=== PATIENT | male | born 1935 | race Caucasian/White ===

== ENCOUNTER 2021-07-02 07:12 | Emergency (ER) | payer MEDICARE, BC ==
[~2021-07-02] VITALS: Ht 167.6 cm; Wt 100.0 kg
[~2021-07-02 07:12] MED LIST: ATOR20TA PO; BACL10TA PO; CELE-193 PO; DABI150C PO; DIGO-27 PO; DILT30TA5 PO; DOCU-148 PO; DUTA0.5C40 PO; FLO0.4C PO; FURO-150 PO; GABA-532 PO; ICOS1CAP PO; METO-411 PO; MODA200T48 PO; OLOP5DRO26 EACHEYE; TEST5GEL19 TP; TRAM50TA2 PO
[2021-07-02 07:42] LABS: BASOPHILS # (AUTO) 0.1 X10'3 (0-0.2); BASOPHILS % (AUTO) 1.2 % (0-1); EOSINOPHILS # (AUTO) 0.1 X10'3 (0-0.9); EOSINOPHILS % (AUTO) 1.8 % (0-6); HEMATOCRIT 40.6 % (42.0-52.0); HEMOGLOBIN 13.5 g/dl (14.0-17.9); LYMPHOCYTES % (AUTO) 12.5 % (21-51); MEAN CORPUSCULAR HEMOGLOBIN 30.7 PG (27.0-31.0); MEAN CORPUSCULAR HGB CONC 33.2 g/dL (33.0-36.5); MEAN CORPUSCULAR VOLUME 92.7 FL (78-98); MEAN PLATELET VOLUME 8.6 FL (7.4-10.4); MONOCYTES # (AUTO) 0.8 X10'3 (0-0.9); MONOCYTES % (AUTO) 9.4 % (2-12); NEUTROPHILS # (AUTO) 6.2 X10'3 (1.8-7.7); NEUTROPHILS % (AUTO) 75.1 % (42-75); PLATELET COUNT 155 X10'3 (140-440); RED BLOOD COUNT 4.38 X10'6 (4.70-6.10); RED CELL DISTRIBUTION WIDTH 15.9 % (11.5-14.5); WHITE BLOOD COUNT 8.2 X10'3 (4.5-11.0)
[2021-07-02 08:12] LABS: ALANINE AMINOTRANSFERASE 22 U/L (12-78); ALBUMIN 3.5 G/DL (3.4-5.0); ALBUMIN/GLOBULIN RATIO 1.1 (1.1-1.5); ALKALINE PHOSPHATASE 77 IU/L (46-116); ANION GAP 10 (8-16); ASPARTATE AMINO TRANSFERASE 16 U/L (10-37); BILIRUBIN,TOTAL 0.7 MG/DL (0.1-1.0); BLOOD UREA NITROGEN 17 MG/DL (7-18); BUN/CREATININE RATIO 19.3 (5.4-32.0); CALCIUM 8.6 MG/DL (8.5-10.1); CHLORIDE 109 MMOL/L (99-107); CREATININE 0.88 MG/DL (0.60-1.10); GLUCOSE 143 MG/DL (70-104); POTASSIUM 4.1 MMOL/L (3.5-5.1); SODIUM 143 MMOL/L (135-145); TOTAL CARBON DIOXIDE 24.3 MMOL/L (24-32); TOTAL PROTEIN 6.7 G/DL (6.4-8.2); eGFR 83 ML/MIN
[2021-07-02] MEDS: diltiazem 5mg/ml 5ml inj. IV ONE ×3 (08:33→10:59)
[2021-07-02] MEDS: furosemide 10 MG/1 ML 10ml inj IV ONE (09:33)
[2021-07-02] MEDS ORDERED: metoprolol succinate 25mg (24-HOUR) SR. Tablet PO SCH (09:55)
[2021-07-02] MEDS: metoprolol succinate 25mg (24-HOUR) SR. Tablet PO ONE (10:00)
[2021-07-02] MEDS: diltiazem 30mg tablet PO ONE (10:00)
[2021-07-02 11:49] VITALS: BP 134/98
[2021-07-03] MEDS ORDERED: metoprolol succinate 25mg (24-HOUR) SR. Tablet PO SCH (08:00)
== END 2021-07-02 11:54 | disposition home or self-care (01) ==
LOC: ER 07:13
DX: I48.20 Chronic atrial fibrillation, unspecified (principal); E87.70 Fluid overload, unspecified; I11.0 Hypertensive heart disease with heart failure; I50.9 Heart failure, unspecified; E11.9 Type 2 diabetes mellitus without complications; Z98.890 Other specified postprocedural states; Z72.89 Other problems related to lifestyle; Z79.899 Other long term (current) drug therapy
CPT/HCPCS: 36415; 71045; 80053; 83880; 84484; 85025; 93005; 96374; 96375; 96376; 99285; J1940; J3490

== ENCOUNTER 2023-02-25 15:16 | Inpatient (IN) | payer MEDICARE, BC ==
[~2023-02-25] VITALS: Ht 172.7 cm; Wt 95.5 kg
[~2023-02-25 15:16] MED LIST changes: +ALBU18HF2 INH; -BACL10TA PO; +DAPA10TA PO; +DICL100G59 TOP; -DIGO-27 PO; -DILT30TA5 PO; +DULA0.75 SQ; +FLUT1BLS4 INH; -FURO-150 PO; +FURO80TA87 PO; +GABA-530 PO; -GABA-532 PO; +IPRA3AMP9 NEB; +METF-517 PO; +METH4TAB81 PO; +METO-395 PO; -METO-411 PO; -OLOP5DRO26 EACHEYE; +PREG75CA76 PO; +SACU1TAB PO; -TEST5GEL19 TP
[2023-02-25] MEDS ORDERED: aspirin 325mg tablet PO ONE (15:35)
[2023-02-25] MEDS ORDERED: diltiazem 5mg/ml 5ml inj. IV ONE ×2 (15:35→16:10)
[2023-02-25] MEDS ORDERED: normal saline 500ml IV soln 500 ML IV ONE (15:40)
[2023-02-25 16:31] LABS: APTT 33 SECONDS (22-32); INR 1.1 INR; PROTHROMBIN TIME 11.6 SECONDS (9.0-12.0)
[2023-02-25 16:33] LABS: BASOPHILS # (AUTO) 0.1 X10'3 (0-0.2); BASOPHILS % (AUTO) 0.5 % (0-1); EOSINOPHILS % (AUTO) 0.3 % (0-6); HEMATOCRIT 40.2 % (42.0-52.0); HEMOGLOBIN 13.2 g/dl (14.0-17.9); LYMPHOCYTES # (AUTO) 1.1 X10'3 (1.1-4.8); LYMPHOCYTES % (AUTO) 9.9 % (21-51); MEAN CORPUSCULAR HEMOGLOBIN 29.8 PG (27.0-31.0); MEAN CORPUSCULAR HGB CONC 32.9 g/dL (33.0-36.5); MEAN CORPUSCULAR VOLUME 90.5 FL (78-98); MEAN PLATELET VOLUME 9.7 FL (7.4-10.4); MONOCYTES # (AUTO) 1.3 X10'3 (0-0.9); MONOCYTES % (AUTO) 11.8 % (2-12); NEUTROPHILS # (AUTO) 8.8 X10'3 (1.8-7.7); NEUTROPHILS % (AUTO) 77.5 % (42-75); PLATELET COUNT 155 X10'3 (140-440); RED BLOOD COUNT 4.44 X10'6 (4.70-6.10); RED CELL DISTRIBUTION WIDTH 17.1 % (11.5-14.5); WHITE BLOOD COUNT 11.3 X10'3 (4.5-11.0)
[2023-02-25 16:35] LABS: ALANINE AMINOTRANSFERASE 24 U/L (12-78); ALBUMIN 3.4 G/DL (3.4-5.0); ALBUMIN/GLOBULIN RATIO 0.9 (1.1-1.5); ALKALINE PHOSPHATASE 144 IU/L (46-116); ANION GAP 10 (8-16); ASPARTATE AMINO TRANSFERASE 22 U/L (10-37); BILIRUBIN,TOTAL 1.4 MG/DL (0.1-1.0); BLOOD UREA NITROGEN 27 MG/DL (7-18); BUN/CREATININE RATIO 21.1 (10.0-20.0); CHLORIDE 100 MMOL/L (99-107); CREATININE 1.28 MG/DL (0.60-1.10); GLUCOSE 130 MG/DL (70-104); POTASSIUM 4.9 MMOL/L (3.5-5.1); SODIUM 135 MMOL/L (135-145); TOTAL CARBON DIOXIDE 24.9 MMOL/L (24-32); TOTAL PROTEIN 7.1 G/DL (6.4-8.2); eCRCL 41 ML/MIN; eGFR 53 ML/MIN
[2023-02-25 16:44] LABS: PRO BRAIN NATRIURETIC PEPTIDE 22228 PG/ML (0-450)
[2023-02-25 16:51] LABS: MAGNESIUM 1.9 MG/DL (1.5-2.4)
[2023-02-25] MEDS ORDERED: furosemide 10 MG/1 ML 10ml inj IV ONE (17:10)
[2023-02-25] MEDS ORDERED: nitroGLYCERIN 1gm ointment UD TP ONE (17:10)
[2023-02-25 17:13] VITALS: TEMP 98.2
[2023-02-25] MEDS ORDERED: diltiazem-D5W 125mg/125ml 125 ML IV SCH (17:15)
[2023-02-25] MEDS ORDERED: diltiazem-NS 100mg/100ml 100 ML IV SCH (17:21)
[2023-02-25] MEDS ORDERED: potassium Cl 20 mEq SR tablet PO PRN ×2 (17:25)
[2023-02-25] MEDS ORDERED: mag hydrox/Alum hydrox/simeth 30ml oral suspension PO PRN (17:25)
[2023-02-25] MEDS ORDERED: magnesium hydroxide 30ml (MOM) UD suspension PO PRN (17:25)
[2023-02-25] MEDS ORDERED: acetaminophen 325mg tablet PO PRN (17:25)
[2023-02-25] MEDS ORDERED: magnesium Cl slow-release 64mg tablet PO PRN (17:25)
[2023-02-25] MEDS ORDERED: normal saline 1000ml 1,000 ML IV SCH (17:25)
[2023-02-25] MEDS ORDERED: magnesium 4gm in 100ml NS 100 ML IV PRN (17:25)
[2023-02-25] MEDS ORDERED: potassium Cl 40MEQ/1/2NS 520ml 520 ML IV PRN (17:25)
[2023-02-25] MEDS ORDERED: ondansetron/PF 4mg/2ml inj IV PRN (17:25)
[2023-02-25] MEDS ORDERED: glucagon, human recombinant 1mg kit SUBCUT PRN (19:40)
[2023-02-25] MEDS ORDERED: DEXTROSE 15 GM of carb/4 tabs (each vial/BOTTLE has 4 tablets) PO PRN ×2 (19:40)
[2023-02-25] MEDS ORDERED: insulin Lispro (HumaLOG) vial - multi-dose SQ SCH (19:40)
[2023-02-25] MEDS ORDERED: dextrose 50%-water 50ml dispensing syringe IV PRN ×2 (19:40)
[2023-02-25] MEDS ORDERED: MESSAGE TO PHARMACY PO ONE (19:40)
[2023-02-25 19:59] LABS: HEMOGLOBIN A1C 5.9 % (4.5-6.2)
[2023-02-25] MEDS ORDERED: dabigatran 150mg capsule PO SCH (20:00)
[2023-02-25] MEDS ORDERED: sacubitril/valsartan 24mg-26mg tablet PO SCH (20:00)
[2023-02-25] MEDS ORDERED: metoprolol succinate 25mg (24-HOUR) SR. Tablet PO SCH (20:00)
[2023-02-25] MEDS ORDERED: docusate sod 100mg capsule PO SCH (20:00)
[2023-02-25] MEDS ORDERED: magnesium oxide 400mg tablet PO SCH (20:00)
[2023-02-25] MEDS ORDERED: furosemide 40mg/4ml inj IV SCH (20:00)
[2023-02-25] MEDS ORDERED: insulin glargine (Lantus) pen - multi-dose SQ SCH (21:00)
[2023-02-25 21:42] VITALS: BP 124/75; PULSE 126; RESP 16; O2SAT 98
[2023-02-26] MEDS ORDERED: furosemide 40mg/4ml inj IV SCH (08:00)
[2023-02-26] MEDS ORDERED: DAPAGLIFLOZIN 10MG TABLET PO SCH (08:00)
[2023-02-26] MEDS ORDERED: gabapentin 100mg capsule PO SCH (08:00)
[2023-03-05] MEDS ORDERED: AMOX-101 PO (18:00)
[2023-03-05] MEDS ORDERED: LOSA-415 PO (18:00)
[2023-03-05] MEDS ORDERED: VIT1CAPS46 PO (18:00)
[2023-03-05] MEDS ORDERED: DULA0.75 SUBCUT (18:00)
[2023-03-05] MEDS ORDERED: METO-411 PO (18:00)
[2023-03-05] MEDS ORDERED: FURO-149 PO (18:00)
[2023-03-05] MEDS ORDERED: AMI200T (18:08)
[2023-03-05] MEDS ORDERED: DAPA10TA PO (18:08)
[2023-03-05] MEDS ORDERED: CIPR7.5D (18:08)
[2023-03-06] MEDS ORDERED: DULA0.75 SUBCUT (11:13)
[2023-03-06] MEDS ORDERED: AMOX-100 PO (11:16)
== END 2023-02-25 23:00 | disposition left against medical advice (07) | DRG 291 ==
LOC: ER 15:18 → ED HOLD 17:30
PROVIDERS: ADMIT Family Medicine; ATTEND Family Medicine
DX: I13.0 Hypertensive heart and chronic kidney disease with heart failure and stage 1 through stage 4 chronic kidney disease, or unspecified chronic kidney disease (principal); I50.21 Acute systolic (congestive) heart failure; I48.91 Unspecified atrial fibrillation; N18.9 Chronic kidney disease, unspecified; G89.29 Other chronic pain; M54.89 Other dorsalgia; E11.22 Type 2 diabetes mellitus with diabetic chronic kidney disease; E11.51 Type 2 diabetes mellitus with diabetic peripheral angiopathy without gangrene; Z95.0 Presence of cardiac pacemaker; Z95.5 Presence of coronary angioplasty implant and graft; Z79.899 Other long term (current) drug therapy; Z98.1 Arthrodesis status
CPT/HCPCS: 36415; 71045; 80053; 83036; 83735; 83880; 84484; 85025; 85610; 85730; 96374; 96375; 99291; G0378; J1815; J1940; J3490; J7030; J7040

== ENCOUNTER 2023-03-02 13:20 | Day surgery (SDC) | payer MEDICARE, BC ==
[2023-03-02] VITALS (15 sets, daily range): BP systolic 71–124; BP diastolic 44–77; PULSE 79–157; RESP 16–24; TEMP 97.5; O2SAT 89–99
[~2023-03-02] VITALS: Ht 172.7 cm; Wt 93.9 kg
[2023-03-02] MEDS ORDERED: MIDAZolam 1mg/ml 10ml vial IV ONE (13:40)
[2023-03-02] MEDS ORDERED: normal saline 1000ml 1,000 ML IV SCH (13:40)
[2023-03-02] MEDS ORDERED: fentaNYL/PF 50MCG/1 ML 2ML syringe IV ONE (13:40)
[2023-03-02] MEDS ORDERED: OMEG-220 PO (14:03)
[2023-03-02] MEDS ORDERED: CEPH-585 PO (14:03)
[2023-03-02 14:07] LABS: BASOPHILS # (AUTO) 0.2 X10'3 (0-0.2); BASOPHILS % (AUTO) 1.4 % (0-1); EOSINOPHILS # (AUTO) 0.2 X10'3 (0-0.9); EOSINOPHILS % (AUTO) 1.7 % (0-6); HEMATOCRIT 39.2 % (42.0-52.0); LYMPHOCYTES # (AUTO) 2.2 X10'3 (1.1-4.8); LYMPHOCYTES % (AUTO) 19.3 % (21-51); MEAN CORPUSCULAR HEMOGLOBIN 29.6 PG (27.0-31.0); MEAN CORPUSCULAR HGB CONC 33.1 g/dL (33.0-36.5); MEAN CORPUSCULAR VOLUME 89.6 FL (78-98); MONOCYTES # (AUTO) 1.3 X10'3 (0-0.9); NEUTROPHILS # (AUTO) 7.3 X10'3 (1.8-7.7); NEUTROPHILS % (AUTO) 65.6 % (42-75); PLATELET COUNT 244 X10'3 (140-440); RED BLOOD COUNT 4.37 X10'6 (4.70-6.10); RED CELL DISTRIBUTION WIDTH 17.2 % (11.5-14.5); WHITE BLOOD COUNT 11.2 X10'3 (4.5-11.0)
[2023-03-02] MEDS ORDERED: [UNRECOGNIZED DRUG - CODE] PO (14:08)
[2023-03-02 14:18] LABS: INR 1.4 INR; PROTHROMBIN TIME 14.7 SECONDS (9.0-12.0)
[2023-03-02 14:23] LABS: ANION GAP 11 (8-16); BLOOD UREA NITROGEN 40 MG/DL (7-18); BUN/CREATININE RATIO 28.4 (10.0-20.0); CALCIUM 9.1 MG/DL (8.5-10.1); CHLORIDE 97 MMOL/L (99-107); CREATININE 1.41 MG/DL (0.60-1.10); GLUCOSE 120 MG/DL (70-104); POTASSIUM 3.7 MMOL/L (3.5-5.1); SODIUM 134 MMOL/L (135-145); TOTAL CARBON DIOXIDE 26.3 MMOL/L (24-32); eCRCL 37 ML/MIN; eGFR 48 ML/MIN
[2023-03-05] MEDS ORDERED: LOSA-415 PO (18:00)
[2023-03-05] MEDS ORDERED: METO-411 PO (18:00)
[2023-03-05] MEDS ORDERED: AMOX-101 PO (18:00)
[2023-03-05] MEDS ORDERED: DULA0.75 SUBCUT (18:00)
[2023-03-05] MEDS ORDERED: FURO-149 PO (18:00)
[2023-03-05] MEDS ORDERED: VIT1CAPS46 PO (18:00)
[2023-03-05] MEDS ORDERED: DAPA10TA PO (18:08)
[2023-03-05] MEDS ORDERED: AMI200T (18:08)
[2023-03-05] MEDS ORDERED: CIPR7.5D (18:08)
[2023-03-06] MEDS ORDERED: DULA0.75 SUBCUT (11:13)
[2023-03-06] MEDS ORDERED: AMOX-100 PO (11:16)
== END 2023-03-02 16:03 | disposition home or self-care (01) ==
LOC: SSTAY O 13:20
PROVIDERS: ATTEND Student in an Organized Health Care Education/Training Program
DX: I48.91 Unspecified atrial fibrillation (principal); E78.5 Hyperlipidemia, unspecified; E11.9 Type 2 diabetes mellitus without complications; G47.33 Obstructive sleep apnea (adult) (pediatric); N40.0 Benign prostatic hyperplasia without lower urinary tract symptoms; G25.0 Essential tremor; I11.0 Hypertensive heart disease with heart failure; I50.9 Heart failure, unspecified; I35.0 Nonrheumatic aortic (valve) stenosis; I27.20 Pulmonary hypertension, unspecified; I49.5 Sick sinus syndrome; Z79.84 Long term (current) use of oral hypoglycemic drugs; Z79.899 Other long term (current) drug therapy; Z95.0 Presence of cardiac pacemaker
CPT/HCPCS: 36415; 80048; 82948; 85025; 85610; 92960; 93005; A4620; J2250; J3010; J7030

== ENCOUNTER 2023-04-09 12:10 | Day surgery (SDC) | payer MEDICARE, BC ==
[2023-03-26 15:13] LABS: BASOPHILS # (AUTO) 0.1 X10'3 (0-0.2); BASOPHILS % (AUTO) 1.3 % (0-1); EOSINOPHILS # (AUTO) 0.2 X10'3 (0-0.9); EOSINOPHILS % (AUTO) 3.6 % (0-6); HEMATOCRIT 41.3 % (42.0-52.0); HEMOGLOBIN 13.5 g/dl (14.0-17.9); LYMPHOCYTES # (AUTO) 1.5 X10'3 (1.1-4.8); LYMPHOCYTES % (AUTO) 22.2 % (21-51); MEAN CORPUSCULAR HEMOGLOBIN 29.4 PG (27.0-31.0); MEAN CORPUSCULAR HGB CONC 32.7 g/dL (33.0-36.5); MEAN CORPUSCULAR VOLUME 89.9 FL (78-98); MEAN PLATELET VOLUME 8.7 FL (7.4-10.4); MONOCYTES # (AUTO) 0.6 X10'3 (0-0.9); MONOCYTES % (AUTO) 9.6 % (2-12); NEUTROPHILS # (AUTO) 4.3 X10'3 (1.8-7.7); NEUTROPHILS % (AUTO) 63.3 % (42-75); PLATELET COUNT 164 X10'3 (140-440); RED BLOOD COUNT 4.59 X10'6 (4.70-6.10); RED CELL DISTRIBUTION WIDTH 19.4 % (11.5-14.5); WHITE BLOOD COUNT 6.8 X10'3 (4.5-11.0)
[2023-03-26 15:19] LABS: APTT 53 SECONDS (22-32); INR 1.5 INR; PROTHROMBIN TIME 15.4 SECONDS (9.0-12.0)
[2023-03-26 15:23] LABS: ALBUMIN 3.6 G/DL (3.4-5.0); ANION GAP 9 (8-16); BLOOD UREA NITROGEN 31 MG/DL (7-18); BUN/CREATININE RATIO 18.7 (10.0-20.0); CALCIUM 9.1 MG/DL (8.5-10.1); CHLORIDE 97 MMOL/L (99-107); CREATININE 1.66 MG/DL (0.60-1.10); GLUCOSE 106 MG/DL (70-104); POTASSIUM 4.3 MMOL/L (3.5-5.1); SODIUM 135 MMOL/L (135-145); TOTAL CARBON DIOXIDE 29.1 MMOL/L (24-32); eGFR 40 ML/MIN
[2023-03-26 15:48] LABS: ANISOCYTOSIS 2+; BURR CELLS 1+; ELLIPTOCYTES FEW; PLATELET ESTIMATE NORMAL; POLYCHROMASIA FEW
[~2023-04-09] VITALS: Ht 172.7 cm; Wt 94.2 kg
[2023-04-09] VITALS (11 sets, daily range): BP systolic 100–111; BP diastolic 61–82; PULSE 75–103; RESP 10–23; TEMP 98.7; O2SAT 93–98
[~2023-04-09 12:10] MED LIST changes: -ALBU18HF2 INH; +AMI200T; +CIPR7.5D; -DICL100G59 TOP; -DOCU-148 PO; -DULA0.75 SQ; +DULA0.75 SUBCUT; -FLUT1BLS4 INH; +FURO-149 PO; -FURO80TA87 PO; -GABA-530 PO; -ICOS1CAP PO; +LAN0.125T PO; -METF-517 PO; -METH4TAB81 PO; -METO-395 PO; +METO50TA16 PO; +OMEG-220 PO; -PREG75CA76 PO; -SACU1TAB PO; +VIT1CAPS46 PO
[2023-04-09] MEDS ORDERED: METO-411 (12:56)
[2023-04-09] MEDS ORDERED: METF-517 (12:56)
[2023-04-09 13:08] LABS: BASOPHILS # (AUTO) 0.1 X10'3 (0-0.2); BASOPHILS % (AUTO) 1.6 % (0-1); EOSINOPHILS # (AUTO) 0.1 X10'3 (0-0.9); HEMATOCRIT 37.7 % (42.0-52.0); HEMOGLOBIN 12.3 g/dl (14.0-17.9); LYMPHOCYTES # (AUTO) 1.3 X10'3 (1.1-4.8); LYMPHOCYTES % (AUTO) 18.4 % (21-51); MEAN CORPUSCULAR HEMOGLOBIN 29.5 PG (27.0-31.0); MEAN CORPUSCULAR HGB CONC 32.5 g/dL (33.0-36.5); MEAN CORPUSCULAR VOLUME 90.9 FL (78-98); MEAN PLATELET VOLUME 8.7 FL (7.4-10.4); MONOCYTES # (AUTO) 0.8 X10'3 (0-0.9); MONOCYTES % (AUTO) 11.1 % (2-12); NEUTROPHILS # (AUTO) 4.6 X10'3 (1.8-7.7); NEUTROPHILS % (AUTO) 66.9 % (42-75); PLATELET COUNT 139 X10'3 (140-440); RED BLOOD COUNT 4.15 X10'6 (4.70-6.10); WHITE BLOOD COUNT 6.8 X10'3 (4.5-11.0)
[2023-04-09] MEDS ORDERED: normal saline 1000ml 1,000 ML IV SCH (13:10)
[2023-04-09] MEDS ORDERED: fentaNYL/PF 50MCG/1 ML 2ML syringe IV ONE (13:10)
[2023-04-09] MEDS ORDERED: MIDAZolam 1mg/ml 10ml vial IV ONE (13:10)
[2023-04-09 13:21] LABS: INR 1.2 INR
[2023-04-09 13:22] LABS: ANION GAP 9 (8-16); BLOOD UREA NITROGEN 31 MG/DL (7-18); BUN/CREATININE RATIO 21.7 (10.0-20.0); CALCIUM 8.5 MG/DL (8.5-10.1); CHLORIDE 103 MMOL/L (99-107); CREATININE 1.43 MG/DL (0.60-1.10); GLUCOSE 103 MG/DL (70-104); POTASSIUM 4.5 MMOL/L (3.5-5.1); SODIUM 138 MMOL/L (135-145); TOTAL CARBON DIOXIDE 25.9 MMOL/L (24-32); eCRCL 37 ML/MIN; eGFR 47 ML/MIN
[2023-04-09 16:34] LABS: ANISOCYTOSIS 2+; PLATELET ESTIMATE DECREASED; POIKILOCYTOSIS FEW
== END 2023-04-09 14:55 | disposition home or self-care (01) ==
LOC: SSTAY O 12:10
PROVIDERS: ATTEND Student in an Organized Health Care Education/Training Program
DX: I48.91 Unspecified atrial fibrillation (principal); I11.0 Hypertensive heart disease with heart failure; I50.9 Heart failure, unspecified; E11.9 Type 2 diabetes mellitus without complications; E78.00 Pure hypercholesterolemia, unspecified; N40.0 Benign prostatic hyperplasia without lower urinary tract symptoms; I27.20 Pulmonary hypertension, unspecified; I73.9 Peripheral vascular disease, unspecified; G47.33 Obstructive sleep apnea (adult) (pediatric); Z79.2 Long term (current) use of antibiotics; Z79.84 Long term (current) use of oral hypoglycemic drugs; Z79.899 Other long term (current) drug therapy
CPT/HCPCS: 36415; 80048; 82948; 85025; 85610; 85730; 92960; J2250; J3010; J7030; 85008; A4620

== ENCOUNTER 2023-06-18 05:31 | Emergency (ER) | payer MEDICARE, BC ==
[~2023-06-18] VITALS: Ht 172.7 cm; Wt 96.0 kg
[~2023-06-18 05:31] MED LIST changes: -AMI200T; -CELE-193 PO; -CIPR7.5D; -DULA0.75 SUBCUT; -IPRA3AMP9 NEB; -LAN0.125T PO; +METO200T49 PO; -METO50TA16 PO; +SACU1TAB PO; +SERT-432 PO
[2023-06-18 06:48] VITALS: TEMP 98
[2023-06-18 08:15] VITALS: BP 80/54; PULSE 54; O2SAT 94
[2023-06-18 08:57] VITALS: RESP 16
[2023-06-18 08:57] LABS: BASOPHILS # (AUTO) 0.1 X10'3 (0-0.2); BASOPHILS % (AUTO) 1.1 % (0-1); EOSINOPHILS # (AUTO) 0.1 X10'3 (0-0.9); EOSINOPHILS % (AUTO) 1.6 % (0-6); HEMATOCRIT 40.9 % (42.0-52.0); HEMOGLOBIN 13.5 g/dl (14.0-17.9); LYMPHOCYTES # (AUTO) 1.1 X10'3 (1.1-4.8); LYMPHOCYTES % (AUTO) 16.6 % (21-51); MEAN CORPUSCULAR HEMOGLOBIN 31.1 PG (27.0-31.0); MEAN CORPUSCULAR HGB CONC 33.1 g/dL (33.0-36.5); MEAN CORPUSCULAR VOLUME 93.8 FL (78-98); MEAN PLATELET VOLUME 8.7 FL (7.4-10.4); MONOCYTES # (AUTO) 0.6 X10'3 (0-0.9); MONOCYTES % (AUTO) 8.7 % (2-12); NEUTROPHILS # (AUTO) 4.9 X10'3 (1.8-7.7); PLATELET COUNT 130 X10'3 (140-440); RED BLOOD COUNT 4.36 X10'6 (4.70-6.10); RED CELL DISTRIBUTION WIDTH 18.6 % (11.5-14.5); WHITE BLOOD COUNT 6.9 X10'3 (4.5-11.0)
[2023-06-18 09:25] LABS: ALBUMIN 3.2 G/DL (3.4-5.0); ANION GAP 7 (8-16); BLOOD UREA NITROGEN 40 MG/DL (7-18); BUN/CREATININE RATIO 30.5 (10.0-20.0); CALCIUM 8.5 MG/DL (8.5-10.1); CHLORIDE 103 MMOL/L (99-107); CREATININE 1.31 MG/DL (0.60-1.10); GLUCOSE 102 MG/DL (70-104); POTASSIUM 4.4 MMOL/L (3.5-5.1); PRO BRAIN NATRIURETIC PEPTIDE 4317 PG/ML (0-450); SODIUM 140 MMOL/L (135-145); TOTAL CARBON DIOXIDE 30.2 MMOL/L (24-32); eCRCL 39 ML/MIN; eGFR 52 ML/MIN
[2023-06-18 09:28] LABS: INR 1.2 INR
[2023-06-18 09:46] LABS: ANISOCYTOSIS 2+; PLATELET ESTIMATE DECREASED
[2023-06-18 09:47] LABS: POIKILOCYTOSIS FEW
[2023-06-18] MEDS ORDERED: AMOX875T2 PO (09:51)
[2023-06-18] MEDS ORDERED: AMOX-101 PO (11:41)
== END 2023-06-18 11:41 | disposition home or self-care (01) ==
LOC: ER 05:31
DX: R04.0 Epistaxis (principal); I11.0 Hypertensive heart disease with heart failure; E11.9 Type 2 diabetes mellitus without complications; Z79.899 Other long term (current) drug therapy; Z79.1 Long term (current) use of non-steroidal anti-inflammatories (NSAID); Z79.2 Long term (current) use of antibiotics
CPT/HCPCS: 30901; 36415; 80048; 83880; 84484; 85008; 85025; 85610; 93005; 99284

== ENCOUNTER 2024-04-04 07:57 | Day surgery (SDC) | payer MEDICARE, BC ==
[2024-03-31 12:44] LABS: BASOPHILS # (AUTO) 0.1 X10'3 (0-0.2); EOSINOPHILS # (AUTO) 0.2 X10'3 (0-0.9); LYMPHOCYTES # (AUTO) 1.5 X10'3 (1.1-4.8); LYMPHOCYTES % (AUTO) 18.5 % (21-51); MEAN CORPUSCULAR HEMOGLOBIN 33.4 PG (27.0-31.0); MEAN CORPUSCULAR HGB CONC 34.1 g/dL (33.0-36.5); MEAN CORPUSCULAR VOLUME 97.8 FL (78-98); MEAN PLATELET VOLUME 8.5 FL (7.4-10.4); MONOCYTES # (AUTO) 0.7 X10'3 (0-0.9); MONOCYTES % (AUTO) 9.1 % (2-12); NEUTROPHILS # (AUTO) 5.7 X10'3 (1.8-7.7); NEUTROPHILS % (AUTO) 69.4 % (42-75); PLATELET COUNT 161 X10'3 (140-440); RED CELL DISTRIBUTION WIDTH 15.9 % (11.5-14.5); WHITE BLOOD COUNT 8.2 X10'3 (4.5-11.0)
[2024-03-31 13:02] LABS: APTT 28 SECONDS (22-32); PROTHROMBIN TIME 10.9 SECONDS (9.0-12.0)
[2024-03-31 13:15] LABS: ANION GAP 6 (8-16); BLOOD UREA NITROGEN 32 MG/DL (7-18); CHLORIDE 105 MMOL/L (99-107); GLUCOSE 86 MG/DL (70-104); POTASSIUM 4.8 MMOL/L (3.5-5.1); SODIUM 142 MMOL/L (135-145); TOTAL CARBON DIOXIDE 30.6 MMOL/L (24-32)
[2024-03-31 13:16] LABS: ALBUMIN 3.5 G/DL (3.4-5.0); CALCIUM 9.2 MG/DL (8.5-10.1); CHOL/HDL RATIO 2.3 (0.00-4.99); CHOLESTEROL 142 MG/DL (0-200); HDL CHOLESTEROL 63 MG/DL (35-60); LDL CHOLESTEROL 67 MG/DL (50-100); TRIGLYCERIDES 71 MG/DL (20-135); eGFR 71 ML/MIN
[~2024-04-04] VITALS: Ht 172.7 cm; Wt 99.7 kg
[2024-04-04] VITALS (8 sets, daily range): BP systolic 121–161; BP diastolic 52–73; PULSE 60–65; RESP 14–17; O2SAT 93–97
[~2024-04-04 07:57] MED LIST changes: +METO200T37 PO; -METO200T49 PO; -OMEG-220 PO; +OMEG-270 PO
[2024-04-04] MEDS ORDERED: FURO20TA4 PO (08:31)
[2024-04-04] MEDS ORDERED: SACU1TAB PO (08:31)
[2024-04-04] MEDS ORDERED: DULA0.75 SQ (08:31)
[2024-04-04] MEDS ORDERED: GABA-530 PO (08:36)
[2024-04-04] MEDS ORDERED: CELE-127 PO (08:37)
[2024-04-04] MEDS ORDERED: CARV6.253 PO (08:37)
[2024-04-04] MEDS ORDERED: APIX2.5T PO (08:41)
[2024-04-04] MEDS: LORazepam 0.5 MG tablet PO PRN (09:49)
[2024-04-04] MEDS: diphenhydrAMINE 25mg capsule PO PRN (09:49)
[2024-04-04] MEDS: normal saline 1,000 ML IV SCH (09:49)
[2024-04-04] MEDS ORDERED: verapamil 2.5 mg/ml inj IV ONE (10:06)
[2024-04-04] MEDS ORDERED: LIDOcaine 1% (10mg/ml) 2ml vial ONE (10:06)
[2024-04-04] MEDS ORDERED: fentaNYL/PF 50MCG/1 ML 2ML syringe ONE (10:06)
[2024-04-04] MEDS ORDERED: heparin 1,000unit/ml 10ml vial 10 ML ONE (10:06)
[2024-04-04] MEDS ORDERED: iohexol 350MG/ML 100ml bottle IV ONE (10:06)
[2024-04-04] MEDS ORDERED: midazolam 1 mg/ML 2ml injection ONE (10:06)
[2024-04-04] MEDS ORDERED: nitroGLYCERIN 500mcg/5mL D5W 5 ML IV ONE (10:06)
[2024-04-04] MEDS ORDERED: LIDOcaine 1% 30ml preserv. free vial ONE (12:20)
[2024-04-04] MEDS ORDERED: iohexol 350 MG/ML 50ML vial IV ONE ×2 (12:31→12:38)
[2024-04-04 13:17] LABS: ISTAT HGB ART 12.6 g/dl (14.0-17.9); ISTAT Hct ART 37 %PCV (42-52); ISTAT O2 SATURATION ARTERIAL 98 % (95-98); ISTAT SOURCE ART
[2024-04-04] MEDS ORDERED: HYDROcodone/acetaminophen 5mg/325mg tablet PO PRN (13:50)
[2024-04-04] MEDS ORDERED: HYDROcodone/acetaminophen 10/325mg tab PO PRN (13:50)
[2024-04-05 11:42] LABS: ISTAT HGB MIX 12.6 g/dl (14.0-17.9); ISTAT Hct MIX 37 %PCV (42-52); ISTAT O2 SATURATION MIX VENOUS 64 % (60-80); ISTAT SOURCE BLNK
[2024-04-05] MEDS ORDERED: areds 2 PO (15:33)
[2024-04-05] MEDS ORDERED: lutein PO (15:33)
== END 2024-04-04 16:10 | disposition home or self-care (01) ==
LOC: SSTAY O 07:57
PROVIDERS: ATTEND Internal Medicine Interventional Cardiology
DX: I35.0 Nonrheumatic aortic (valve) stenosis (principal); I48.91 Unspecified atrial fibrillation; I11.0 Hypertensive heart disease with heart failure; I49.5 Sick sinus syndrome; I50.9 Heart failure, unspecified; I73.9 Peripheral vascular disease, unspecified; I27.20 Pulmonary hypertension, unspecified; G47.33 Obstructive sleep apnea (adult) (pediatric); Z79.899 Other long term (current) drug therapy; Z79.01 Long term (current) use of anticoagulants; Z98.890 Other specified postprocedural states; Z88.8 Allergy status to other drugs, medicaments and biological substances
CPT/HCPCS: 36415; 80048; 80061; 82803; 85014; 85025; 85610; 85730; 93005; 93456; 93567; 99152; 99153; A4615; A6258; A6402; C1751; C1894; J1644; J2003; J2250; J3010; J3490; J7030; Q0163; Q9967; Z7610; A6449

== ENCOUNTER 2024-04-10 06:19 | Day surgery (SDC) | payer MEDICARE, BC ==
[~2024-04-10] VITALS: Ht 172.7 cm; Wt 98.6 kg
[2024-04-10] VITALS (7 sets, daily range): BP systolic 99–135; BP diastolic 54–73; PULSE 60–63; RESP 14–18; TEMP 97.8; O2SAT 93–98
[2024-04-10] MEDS: ceFAZolin 2gm in dextrose, iso 50 ML IV ONE (05:30)
[2024-04-10] MEDS: DOCUMENT DATE & TIME OF BETA-BLOCKER PO ONE (05:30)
[~2024-04-10 06:19] MED LIST changes: +APIX2.5T PO; +CARV6.253 PO; +CELE-127 PO; -DABI150C PO; +DULA0.75 SQ; -FURO-149 PO; +FURO20TA4 PO; +GABA-530 PO; -METO200T37 PO; -SERT-432 PO; -VIT1CAPS46 PO; +areds 2 PO; +lutein PO
[2024-04-10] MEDS ORDERED: LIDOcaine 2% (20mg/ml) 5ml vial ONE (07:01)
[2024-04-10] MEDS ORDERED: BUPIVAcaine/PF 2.5mg/ml (0.25%) 10ml vial ONE (07:01)
[2024-04-10] MEDS: ringers solution, lacted 1,000 ML IV SCH (07:14)
[2024-04-10] MEDS: famotidine 20mg tablet PO ONE (07:14)
[2024-04-10] MEDS ORDERED: ringers solution, lacted 1,000 ML IV SCH (08:00)
[2024-04-10] MEDS ORDERED: proCHLORperazine 10 MG/2 ml inj IV PRN (08:00)
[2024-04-10] MEDS ORDERED: morphine 2 MG/ML inj. syringe IV PRN (08:00)
[2024-04-10] MEDS ORDERED: ondansetron/PF 4mg/2ml inj IV PRN (08:00)
[2024-04-10] MEDS ORDERED: morphine 4 MG/ML inj SYRINge IV PRN (08:00)
[2024-04-10] MEDS ORDERED: meperidine/PF 25mg/ml syringe IV PRN ×3 (08:00)
[2024-04-10] MEDS ORDERED: fentaNYL/PF 50MCG/1 ML 2ML syringe ONE (08:26)
[2024-04-10] MEDS ORDERED: midazolam 1 mg/ML 2ml injection ONE (08:27)
[2024-04-10] MEDS ORDERED: triamcinolone acetonide 40mg/ml inj ONE (08:31)
[2024-04-10] MEDS ORDERED: propofol inj 20 ML IV ONE (08:36)
[2024-04-10] MEDS: BUPIVAcaine/PF 2.5mg/ml (0.25%) 10ml vial IJ ONE (09:34)
== END 2024-04-10 09:32 | disposition home or self-care (01) ==
LOC: PAS 06:19
PROVIDERS: ATTEND Orthopaedic Surgery Hand Surgery
DX: G56.03 Carpal tunnel syndrome, bilateral upper limbs (principal); I48.91 Unspecified atrial fibrillation; I11.0 Hypertensive heart disease with heart failure; I50.9 Heart failure, unspecified; E78.5 Hyperlipidemia, unspecified; I35.0 Nonrheumatic aortic (valve) stenosis; E11.9 Type 2 diabetes mellitus without complications; G47.30 Sleep apnea, unspecified; Z98.890 Other specified postprocedural states; Z79.899 Other long term (current) drug therapy; Z85.828 Personal history of other malignant neoplasm of skin; Z95.0 Presence of cardiac pacemaker; Z96.649 Presence of unspecified artificial hip joint
CPT/HCPCS: 20526; 64721; 82948; A4215; A6449; J0690; J2003; J2250; J2704; J3010; J3301; J3490; J7030; J7120; Z7506; Z7512

== ENCOUNTER 2024-04-28 10:18 | Outpatient (CLI) | payer MEDICARE, BC ==
[~2024-04-28 10:18] MED LIST changes: +IODIXANOL 320 MG/ML INFUS..BTL 100ML IV ONE
[2024-04-28 11:02] LABS: BASOPHILS # (AUTO) 0.1 X10'3 (0-0.2); BASOPHILS % (AUTO) 1.2 % (0-1); EOSINOPHILS # (AUTO) 0.1 X10'3 (0-0.9); EOSINOPHILS % (AUTO) 1.5 % (0-6); HEMATOCRIT 40.4 % (42.0-52.0); HEMOGLOBIN 13.9 g/dl (14.0-17.9); LYMPHOCYTES # (AUTO) 1.4 X10'3 (1.1-4.8); LYMPHOCYTES % (AUTO) 14.5 % (21-51); MEAN CORPUSCULAR HEMOGLOBIN 33.3 PG (27.0-31.0); MEAN CORPUSCULAR HGB CONC 34.5 g/dL (33.0-36.5); MEAN CORPUSCULAR VOLUME 96.6 FL (78-98); MEAN PLATELET VOLUME 8.7 FL (7.4-10.4); MONOCYTES # (AUTO) 0.7 X10'3 (0-0.9); MONOCYTES % (AUTO) 7.8 % (2-12); NEUTROPHILS # (AUTO) 7.2 X10'3 (1.8-7.7); PLATELET COUNT 118 X10'3 (140-440); RED BLOOD COUNT 4.18 X10'6 (4.70-6.10); RED CELL DISTRIBUTION WIDTH 15.2 % (11.5-14.5); WHITE BLOOD COUNT 9.5 X10'3 (4.5-11.0)
[2024-04-28 11:06] LABS: APTT 27 SECONDS (22-32); INR 1.1 INR; PROTHROMBIN TIME 11.2 SECONDS (9.0-12.0)
[2024-04-28 11:14] LABS: ALANINE AMINOTRANSFERASE 38 U/L (12-78); ALBUMIN 3.6 G/DL (3.4-5.0); ALBUMIN/GLOBULIN RATIO 1.1 (1.1-1.5); ALKALINE PHOSPHATASE 94 IU/L (46-116); ANION GAP 2 (8-16); ASPARTATE AMINO TRANSFERASE 18 U/L (10-37); BILIRUBIN,TOTAL 0.8 MG/DL (0.1-1.0); BLOOD UREA NITROGEN 41 MG/DL (7-18); BUN/CREATININE RATIO 38.3 (10.0-20.0); CALCIUM 9.2 MG/DL (8.5-10.1); CHLORIDE 106 MMOL/L (99-107); CREATININE 1.07 MG/DL (0.60-1.10); GLUCOSE 98 MG/DL (70-104); POTASSIUM 4.6 MMOL/L (3.5-5.1); PRO BRAIN NATRIURETIC PEPTIDE 1097 PG/ML (0-450); SODIUM 141 MMOL/L (135-145); TOTAL CARBON DIOXIDE 33.1 MMOL/L (24-32); TOTAL PROTEIN 6.9 G/DL (6.4-8.2); eGFR 65 ML/MIN
== END 2024-04-28 23:59 | disposition home or self-care (01) ==
LOC: RAD 10:18
PROVIDERS: ATTEND Internal Medicine Cardiovascular Disease
DX: I51.7 Cardiomegaly (principal); N20.0 Calculus of kidney; N28.1 Cyst of kidney, acquired; M47.815 Spondylosis without myelopathy or radiculopathy, thoracolumbar region; R06.02 Shortness of breath; I35.0 Nonrheumatic aortic (valve) stenosis; I65.29 Occlusion and stenosis of unspecified carotid artery; I70.0 Atherosclerosis of aorta
CPT/HCPCS: 36415; 71046; 71275; 74174; 75572; 80053; 83880; 85025; 85610; 85730; Q9967